=== PATIENT | female | born 1965 | race Caucasian/White ===

== ENCOUNTER 2018-03-13 23:13 | Emergency (ER) | payer BC, SELFPAY ==
[2018-03-13 23:38] VITALS: BP 179/105; PULSE 76; RESP 20; TEMP 36.6; O2SAT 99; BMI 31.0
--- NOTE | 2018-03-13 23:42 | DI.RAD.S_ITS ---
PROCEDURE: XR FINGER LT MIN 2V INDICATIONS: pain and posiible deformity TECHNIQUE: AP hand, 2 views of the left finger(s) acquired. COMPARISON: None. FINDINGS: Bones: No fractures or dislocations. No suspicious bony lesions. Soft tissues: Soft tissue swelling involving the proximal ring finger at the level of the proximal phalanx.. IMPRESSION: No fracture. Ring finger proximal soft tissue swelling Dictated by: Trace Quarles M.D. on 03/14/2018 at 7:29 Approved by: Trace Quarles M.D. on 03/14/2018 at 7:31
--- NOTE | 2018-03-14 04:52 | ED_ITS ---
HPI - Extremity Injury (Upper) General Chief Complaint: Extremity Injury, Upper Stated Complaint: THINKS SHE BROKE LEFT RING FINGER Time Seen by Provider: 03/14/18 00:00 Source: patient Mode of arrival: ambulatory Limitations: no limitations History of Present Illness HPI narrative: Patient complains of left ring finger pain after an injury just prior to arrival. Her was walking a large dog whom became a bit rambunctious, he pulled back forcefully on the leash and his hand and struck her in her left hand. Since then she has had pain in her left finger at the metacarpophalangeal joint. She denies any obvious deformity nor numbness, tingling or weakness. She denies any history of injury to this finger and is otherwise well and free of complaint MD complaint: injury to: left and finger Onset (ago): hour(s) Other Extremity Injury: Left: fingers Other injuries: none Handedness: right Place: outdoors Severity: mild Relieving factors: rest Exacerbating factors: movement of extremity Context: direct blow Associated symptoms: denies other symptoms Related Data Previous Rx's Medication Instructions Recorded docusate sodium [Colace] 100 mg PO BID #14 cap 01/20/17 oxycodone 5 mg PO Q3HP PRN #40 tab 01/20/17 Allergies Allergy/AdvReac Type Severity Reaction Status Date / Time egg [EGG] Allergy Unknown Unverified 12/04/17 12:27 Review of Systems Review of Systems All systems reviewed & are unremarkable except as noted in HPI and below Eyes Denies change in vision, Denies eye discharge, Denies irritation and Denies loss of vision Cardiovascular Denies chest pain, Denies irregular heart rhythm, Denies lightheadedness, Denies palpitations and Denies orthopnea Gastrointestinal Gastrointestinal: Denies abdominal pain, Denies change in bowel habits, Denies diarrhea, Denies nausea and Denies vomiting Musculoskeletal Reports joint swelling and Reports limited range of motion Integumentary/Breasts Denies pruritus, Denies erythema, Denies rash and Denies wounds Neurologic Denies loss of vision Endocrine Denies palpitations [facility] Social History Smoking Status: Never smoker Exam Initial Vital Signs Initial Vital Signs: Vital Signs Temperature 98 F 03/13/18 23:38 Pulse Rate 76 03/13/18 23:38 Respiratory Rate 20 03/13/18 23:38 Blood Pressure 179/105 H 03/13/18 23:38 Pulse Oximetry 99 03/13/18 23:38 Const General: cooperative and well developed Nutritional Appearance: well nourished Orientation: alert, awake, oriented x3 and not confused Resp Effort & Inspection: normal respiratory effort, able to speak in complete sentences, no respiratory distress and no use of accessory muscles Auscultation: clear to auscultation bilaterally, no rales, no rhonchi and no wheezes Cardio Rate: regular rate Rhythm: regular rhythm Heart Sounds: no click, no gallops, no murmurs and no rubs Pulses: normal peripheral pulses GI Inspection: non-distended Palpation: soft, no hepatosplenomegaly, No guarding, No pulsatile mass and No tender Auscultation: normal bowel sounds Neuro General: alert, oriented x3, gait normal and no focal motor deficits Speech: speech normal Motor: muscle tone normal throughout Sensory Exam: no sensory deficits noted Extrem Left upper extremity: hand Details: normal ROM of fingers and swelling; no abrasions and no lacerations Procedures Orthopedic Splinting/Casting Injury #1: Upper Extremity Injury Location: finger Upper Extremity Immobilizer: aluminum form splint Course Orders Ordered: ED Orders 03/13/18 23:42 XR finger LT min 2V Stat Vital Signs - 8 hr 03/13/18 23:38 Temperature 98 F Pulse Rate 76 Respiratory Rate 20 Blood Pressure 179/105 H Pulse Oximetry 99 Discharge Plan Departure Patient Disposition: Home, Self-Care Clinical Impression: Finger sprain Discharge Date/Time: 03/14/18 01:51 Interventions: ED Discharge Assessment Last Done: 03/14/18 01:50 Instructions: DI for Finger Sprain Activity Restrictions/Additional Instructions: *You have been diagnosed with [ left ring finger sprain ] *What to do: *Take medications as directed such as pwld-krb-tenoryi Tylenol and Motrin *Follow up with your primary care provider in 2-3 days, call for an appointment. Let them know you were seen in the Emergency Department and that we ask that you be seen in follow up *Return to ER if you should have any new, worsening or concerning symptoms , such as [increasing pain, swelling, numbness or weakness of her finger ] Prescriptions: No Action oxycodone 5 MG tablet 5 mg PO Q3HP PRNQty: 40 RF: 0 docusate sodium [Colace] 100 MG capsule 100 mg PO BID Qty: 14 RF: 1
== END 2018-03-14 01:51 | disposition home or self-care (01) ==
PROVIDERS: Emergency Provider Emergency Medicine
DX: S63.615A Unspecified sprain of left ring finger, initial encounter (principal); W23.0XXA Caught, crushed, jammed, or pinched between moving objects, initial encounter
CPT/HCPCS: 29130; 73140; 99282; 99283

== ENCOUNTER 2018-04-15 23:56 | Emergency (ER) | payer BC, SELFPAY ==
[2018-04-16 00:07] VITALS: BP 158/99; PULSE 86; RESP 20; TEMP 37; O2SAT 99
[2018-04-16 00:14] VITALS: PULSE 86; RESP 20; TEMP 37; O2SAT 99
[2018-04-16] MEDS: predniSONE 20 MG TABLET 60 MG PO (02:11)
[2018-04-16 02:44] VITALS: BP 155/90; PULSE 86; RESP 20; TEMP 36.9; O2SAT 99
--- NOTE | 2018-04-17 04:09 | ED_ITS ---
HPI - URI/Sore Throat General Chief Complaint: Upper Respiratory Symptoms Stated Complaint: facial swelling, congestion headache Time Seen by Provider: 04/15/18 23:59 Source: patient Mode of arrival: ambulatory Limitations: no limitations History of Present Illness HPI Narrative: Patient presents to the emergency department today with a chief complaint of nasal congestion and sinus fullness with some mild headache over the course of the day which she attributes to all the smoke in the atmosphere. She presents to the emergency department because she had perceived swelling on her bilateral cheeks but denies any tongue lip or throat swelling. She has no trouble with swallowing or difficulty breathing. She denies any exposure to known allergens. She denies any rash or urticaria MD Complaint: rhinorrhea, nasal congestion and sinus pain Onset (ago): hour(s) Duration: constant Severity: mild Relieving factors: nothing Exacerbating factors: nothing Description of mucous: clear Able to tolerate fluids by mouth: Yes Associated symptoms: denies other symptoms Treatments prior to arrival: cold medicine Related Data Previous Rx's Medication Instructions Recorded docusate sodium [Colace] 100 mg PO BID #14 cap 01/20/17 oxycodone 5 mg PO Q3HP PRN #40 tab 01/20/17 prednisone 20 mg PO BID 4 Days #8 tab 04/16/18 Allergies Allergy/AdvReac Type Severity Reaction Status Date / Time egg [EGG] Allergy Unknown Unverified 12/04/17 12:27 Review of Systems Review of Systems All systems reviewed & are unremarkable except as noted in HPI and below Constitutional Denies chills, Denies fever(s), Denies lethargy and Denies weakness Eyes Denies change in vision, Denies eye discharge, Denies irritation and Denies loss of vision ENT Ears, Nose, Mouth, and Throat: Denies change in voice, Reports nasal congestion , Denies neck pain and Denies sore throat Cardiovascular Denies chest pain, Denies irregular heart rhythm, Denies lightheadedness, Denies palpitations, Denies dyspnea, Denies dyspnea on exertion and Denies orthopnea Respiratory Denies cough, Denies dyspnea, Denies dyspnea on exertion and Denies wheezing Gastrointestinal Gastrointestinal: Denies abdominal pain, Denies change in bowel habits, Denies diarrhea, Denies nausea and Denies vomiting Genitourinary Denies hematuria, Denies flank pain, Denies urinary incontinence and Denies urinary urgency Musculoskeletal Denies neck pain Integumentary/Breasts Denies pruritus, Denies erythema, Denies rash and Denies wounds Neurologic Denies confusion, Denies loss of vision and Denies weakness Psychiatric Denies anxiety, Denies confusion, Denies depression, Denies homicidal ideation and Denies suicidal ideation Endocrine Denies palpitations Hematologic/Lymphatic Denies easy bruising Allergic/Immunologic Denies wheezing PFSH Social History Smoking Status: Never smoker Exam Narrative Exam Narrative: GEN: AOx3 and in mild distress FACE: No swelling noted, no erythema, warmth or induration. She does have some tenderness over all sinuses EYES: Pupils are equal, round, and reactive to light and accommodation. Extraoccular muscles are intact bilaterally. There is no subconjunctival hemorrhage or exudate. CHEST: Lungs are clear to auscultation bilaterally and free of wheezes, rales, or rhonchi. Heart rate is regular rhythm, there are no murmurs, clicks, rubs, or gallops. There is no chest wall tenderness. ABD: Abdomen is soft and nontender. There is no guarding or rebound. Bowel sounds are normal in all 4 quadrants. There is no mass or organomegaly. EXT: Full painless ROM of all extremities with no loss of sensation or strength. SKIN: Warm, pink, and dry. No erythema or rash Initial Vital Signs Initial Vital Signs: Vital Signs Temperature 98.6 F 04/16/18 00:07 Pulse Rate 86 04/16/18 00:07 Respiratory Rate 20 04/16/18 00:07 Blood Pressure 158/99 H 04/16/18 00:07 Pulse Oximetry 99 04/16/18 00:07 Course Orders Ordered: Discontinued Medications Prednisone (Deltasone) 60 mg PO NOW ONE Stop: 04/16/18 01:31 Last Admin: 04/16/18 02:11 Dose: 60 mg Discharge Plan Departure Patient Disposition: Home Clinical Impression: Allergic rhinitis Discharge Date/Time: 04/16/18 02:46 Interventions: ED Discharge Assessment Last Done: 04/16/18 02:44 Instructions: Allergic Rhinitis Activity Restrictions/Additional Instructions: *You have been diagnosed with [ allergic rhinitis due to environmental smoke] *What to do: *Take medications as directed: Continue taking suem-yko-cjjowll Beverly D (or similar) *Follow up with your primary care provider in 2-3 days, call for an appointment. Let them know you were seen in the Emergency Department and that we ask that you be seen in follow up *Return to ER if you should have any new, worsening or concerning symptoms Prescriptions: New prednisone 20 mg tablet 20 mg PO BID 4 Days Qty: 8 RF: 0 No Action oxycodone 5 MG tablet 5 mg PO Q3HP PRNQty: 40 RF: 0 docusate sodium [Colace] 100 MG capsule 100 mg PO BID Qty: 14 RF: 1
== END 2018-04-16 02:46 | disposition home or self-care (01) ==
PROVIDERS: Emergency Provider Emergency Medicine
DX: J30.9 Allergic rhinitis, unspecified (principal)
CPT/HCPCS: 99282; 99283

== ENCOUNTER 2022-12-07 19:50 | Emergency (ER) | payer OTHER, SELFPAY ==
[2022-12-07] VITALS (8 sets, daily range): BP systolic 133–154; BP diastolic 69–85; PULSE 75–92; RESP 13–20; TEMP 36.3; O2SAT 96–98; BMI 28.3
[2022-12-07] MEDS: SODIUM CHLORIDE 0.9% 1,000 ML 1000 ML IV (20:21)
[2022-12-07 20:32] LABS: Alanine Aminotransferase 31 IU/L (<35); Albumin 4.4 g/dL (3.5-5.0); Albumin Globulin Ratio 1.3 (1.0-2.8); Alkaline Phosphatase 77 U/L (38-126); Aspartate Aminotransferase 29 IU/L (14-36); Bilirubin Total 0.4 mg/dL (0.2-1.3); Blood Urea Nitrogen 15 mg/dL (7-17); Calcium 9.4 mg/dL (8.4-10.2); Carbon Dioxide 23 mmol/L (22-32); Chloride 104 mmol/L (98-107); Estimated Glomerular Filt Rate > 60 mL/min (>60); Globulin 3.4 g/dL (1.7-4.1); Glucose 112 mg/dL (70-100); HEMOLYSIS < 15 (0-50); Lipase 340 U/L (23-300); Potassium 3.9 mmol/L (3.4-5.1); Sodium 137 mmol/L (137-145); Total Protein 7.8 g/dL (6.3-8.2)
[2022-12-07 20:43] LABS: Add Manual Diff / Slide Review NO; Basophils Absolute Auto 100 /uL (0-100); Basophils Percent Auto 0.4 % (0-2); Eosinophils Absolute Auto 600 /uL (0-450); Eosinophils Percent Auto 3.9 % (2-4); Hemoglobin 13.3 g/dL (12.0-16.0); Lymphocytes Absolute Auto 2700 /uL (1100-4500); Lymphocytes Percent Auto 18.3 % (25-40); Mean Corpuscular HGB Conc 34.2 % (30-36); Mean Corpuscular Hemoglobin 28.5 PG (26-34); Mean Corpuscular Volume 83.3 fL (80-100); Monocytes Absolute Auto 1000 /uL (0-900); Monocytes Percent Auto 7.1 % (3-14); Neutrophils Absolute Auto 10400 /uL (1500-7000); Neutrophils Percent Auto 70.3 % (50-75); Platelet Count 166 X10^3/uL (150-400); Red Blood Cell Count 4.69 X10^6/uL (4.0-5.2); Red Cell Distribution Width 12.4 % (11.6-14.8); White Blood Cell Count 14.8 X10^3/uL (4.5-11.0)
[2022-12-07 20:45] LABS: Ictotest Urine Negative (Negative)
[2022-12-07 20:46] LABS: Bacteria Urine Occasional (0-1); Culture Indicated Urine Specimen Cultured; RBC Urine None Seen (0-5/HPF); Squamous Epithelial Cell Urine 1-5 /HPF (0-5/HPF); WBC Urine 5-10/HPF (0-5/HPF)
--- NOTE | 2022-12-07 21:04 | PC.NURSE ---
Pt reports hx of Mitral valve prolapse and paroxysmal atrial tachycardia.
--- NOTE | 2022-12-07 21:53 | ED.ABDPAIN ---
HPI - Abdominal Pain General Chief Complaint: Abdominal Pain Stated Complaint: Woozy, Belly pain Time Seen by Provider: 12/07/22 20:06 Source: patient Mode of arrival: Ambulatory History of Present Illness HPI narrative: This is a 56-year-old female with history of mitral valve prolapse, proximal atrial tachycardia, prior cholecystectomy and left inguinal hernia repair. Patient patient has had right upper quadrant abdominal pain for months usually when she wakes up she usually has food in the morning and it feels better she thought this might just be secondary to her prior cholecystectomy. For the last week she is had bilateral upper abdominal bloating distention and discomfort, she states no flank or new back pain. She denies fevers or chills until today she was freezing cold. She is had diarrhea for about a week no black or bloody stools typically small amounts frequently throughout the day 2 or 3 maybe 4 times. Patient states typically she has formed stools. She did drink an entire bottle of Mag citrate and then a large glass of water all at once because they thought that might be helpful about 45 minutes after that she got very nauseated vomited x1 but became concerned because she threw up a salad she would had at 9:00 a.m. in the morning and this was at 7:30 a.m. this evening. Patient only had the 1 episode of vomiting. She denies dysuria, urgency or frequency. Patient states no prescription medications she has known mitral valve prolapse. She is had prior cholecystectomy and left hernia repair and inguinal. She has an allergy to raw egg so avoids flu shots. No tobacco, alcohol once every 6 months, no illicit. Dr. López is her PCP. She works as a school cook. Related Data Previous Rx's Medication Instructions Recorded docusate sodium 100 mg capsule 100 mg PO BID #14 caps 01/20/17 (Colace) oxycodone 5 mg tablet 5 mg PO Q3HP PRN #40 tabs 01/20/17 meloxicam 7.5 mg tablet 7.5 mg PO BID PRN pain #10 tabs 12/07/22 Allergies Allergy/AdvReac Type Severity Reaction Status Date / Time egg [EGG] Allergy Unknown Unverified 12/04/17 12:27 Review of Systems Review of Systems ROS Unobtainable: All systems reviewed & are unremarkable except as noted in HPI and below Patient History Social History Smoking Status: Never smoker Smoking Status: Never smoker Substance Use Type: does not use Exam Narrative Exam Narrative: GENERAL: Alert and oriented x three, female in mild distress. HEENT: Head normocephalic, atraumatic, EOMI, pupils reactive, face symmetric, moist mucous membranes NECK: Supple, full range of motion CARDIOVASCULAR: Regular rate and rhythm without murmurs, rubs or gallops. RESPIRATORY: Breath sounds equal bilaterally, no wheezes rales or rhonchi. ABDOMEN: Soft, generalized tenderness. Slightly distended. Normoactive bowel sounds all 4 quadrants. No guarding or rebound, rigidity, no mass : No CVA tenderness EXTREMITIES: Normal range of motion, no clubbing or edema. Neurovascularly intact NEUROLOGICAL: Cranial nerves II through XII grossly intact. Moving all extremities SKIN: Warm, dry, no petechiae, no rashes or lesions. Initial Vital Signs Initial Vital Signs: Vital Signs Temperature 97.4 F L 12/07/22 19:55 Pulse Rate 92 H 12/07/22 19:55 Respiratory Rate 20 12/07/22 19:55 Blood Pressure 133/85 12/07/22 19:55 Pulse Oximetry 98 12/07/22 19:55 Oxygen Delivery Method Room Air 12/07/22 19:55 Course Orders Ordered: ED Orders 12/07/22 22:04 CT abdomen pelvis w con Stat Discontinued Medications Sodium Chloride (Normal Saline 0.9%) 1,000 mls @ 1,000 mls/hr IV BOLUS ONE Stop: 12/07/22 21:10 Last Infusion: 12/07/22 21:24 Dose: 0 mls/hr Documented By: Admin: 12/07/22 20:21 Dose: 1,000 mls/hr Documented By: YESSENIA Ketorolac Tromethamine (Ketorolac 30 Mg/Ml Vial) 15 mg IV NOW ONE Stop: 12/07/22 22:05 Last Admin: 12/07/22 22:11 Dose: 15 mg Documented By: STEPHAN Ondansetron HCl (Ondansetron 4 Mg Odt) 4 mg PO NOW PRN PRN Reason: Nausea And Vomiting Ondansetron HCl (Ondansetron 4 Mg/2 Ml Inj) 4 mg IV NOW PRN PRN Reason: Nausea And Vomiting Ondansetron HCl (Ondansetron 4 Mg/2 Ml Inj) 4 mg IV NOW ONE Stop: 12/07/22 22:05 Last Admin: 12/07/22 22:11 Dose: 4 mg Documented By: JENNG Vital Signs Vital signs: Vital Signs - 8 hr 12/07/22 22:00 12/07/22 22:30 12/07/22 23:00 Pulse Rate 83 81 80 Respiratory Rate 14 13 Blood Pressure Pulse Oximetry 97 97 96 12/07/22 23:17 12/07/22 23:17 Pulse Rate 75 Respiratory Rate 15 Blood Pressure 150/69 H Pulse Oximetry 96 MDM - Abdominal Pain Lab Data 12/07/22 20:15 12/07/22 20:15 Labs: Lab Results 12/07/22 12/07/22 12/07/22 Range/Units 20:15 20:15 20:15 WBC 14.8 H (4.5-11.0) X10^3/uL RBC 4.69 (4.0-5.2) X10^6/uL Hgb 13.3 (12.0-16.0) g/dL Hct 39.0 (36-46) % MCV 83.3 (80-100) fL MCH 28.5 (26-34) PG MCHC 34.2 (30-36) % RDW 12.4 (11.6-14.8) % Plt Count 166 (150-400) X10^3/uL Neut % (Auto) 70.3 (50-75) % Lymph % (Auto) 18.3 L (25-40) % Haakon % (Auto) 7.1 (3-14) % Eos % (Auto) 3.9 (2-4) % Baso % (Auto) 0.4 (0-2) % Neut # (Auto) 72414 H (9922-7181) /uL Lymph # (Auto) 2700 (1543-3912) /uL Haakon # (Auto) 1000 H (0-900) /uL Eos # (Auto) 600 H (0-450) /uL Baso # (Auto) 100 (0-100) /uL Sodium 137 (137-145) mmol/L Potassium 3.9 (3.4-5.1) mmol/L Chloride 104 (98-107) mmol/L Carbon Dioxide 23 (22-32) mmol/L BUN 15 (7-17) mg/dL Creatinine 0.60 (0.52-1.04) mg/dL Estimated GFR > 60 (>60) mL/min BUN/Creatinine Ratio 25.0 H (6-22) Glucose 112 H (70-100) mg/dL Calcium 9.4 (8.4-10.2) mg/dL Total Bilirubin 0.4 (0.2-1.3) mg/dL AST 29 (14-36) IU/L ALT 31 (<35) IU/L Alkaline Phosphatase 77 (38-126) U/L Total Creatine Kinase 40 (30-135) U/L CK-MB (CK-2) TNP CK-MB (CK-2) Rel Index TNP Troponin I < 0.012 (0.01-0.034) ng/mL Total Protein 7.8 (6.3-8.2) g/dL Albumin 4.4 (3.5-5.0) g/dL Globulin 3.4 (1.7-4.1) g/dL Albumin/Globulin Ratio 1.3 (1.0-2.8) Lipase 340 H (23-300) U/L Ur Bilirubin Confirm (Negative) Urine RBC (0-5/HPF) Urine WBC (0-5/HPF) Ur Squamous Epith Cells (0-5/HPF) Urine Bacteria (None) Ur Culture Indicated? 12/07/22 12/07/22 Range/Units 20:22 20:22 WBC (4.5-11.0) X10^3/uL RBC (4.0-5.2) X10^6/uL Hgb (12.0-16.0) g/dL Hct (36-46) % MCV (80-100) fL MCH (26-34) PG MCHC (30-36) % RDW (11.6-14.8) % Plt Count (150-400) X10^3/uL Neut % (Auto) (50-75) % Lymph % (Auto) (25-40) % [place] % (Auto) (3-14) % Eos % (Auto) (2-4) % Baso % (Auto) (0-2) % Neut # (Auto) (8761-8362) /uL Lymph # (Auto) (8634-2148) /uL Haakon # (Auto) (0-900) /uL Eos # (Auto) (0-450) /uL Baso # (Auto) (0-100) /uL Sodium (137-145) mmol/L Potassium (3.4-5.1) mmol/L Chloride (98-107) mmol/L Carbon Dioxide (22-32) mmol/L BUN (7-17) mg/dL Creatinine (0.52-1.04) mg/dL Estimated GFR (>60) mL/min BUN/Creatinine Ratio (6-22) Glucose (70-100) mg/dL Calcium (8.4-10.2) mg/dL Total Bilirubin (0.2-1.3) mg/dL AST (14-36) IU/L ALT (<35) IU/L Alkaline Phosphatase (38-126) U/L Total Creatine Kinase (30-135) U/L CK-MB (CK-2) CK-MB (CK-2) Rel Index Troponin I (0.01-0.034) ng/mL Total Protein (6.3-8.2) g/dL Albumin (3.5-5.0) g/dL Globulin (1.7-4.1) g/dL Albumin/Globulin Ratio (1.0-2.8) Lipase (23-300) U/L Ur Bilirubin Confirm Negative (Negative) Urine RBC None seen (0-5/HPF) Urine WBC 5-10/hpf H (0-5/HPF) Ur Squamous Epith Cells 1-5 /hpf (0-5/HPF) Urine Bacteria Occasional (0-1) (None) Ur Culture Indicated? Specimen cultured Point of care testing: Urine Dip Bedside Urine Glucose Negative Bedside Urine Bilirubin + 1 Bedside Urine Ketone +/- 5 Urine Specific [place] 1.03 Bedside Urine Occult Blood + Bedside Urine Protein - Negative Bedside Urine Urobilinogen - Negative Bedside Urine Nitrite - Negative Bedside Urine Leukocytes + [address] scan - abdomen/pelvis: Radiologist's Impression: [address] [address] [address] Scan Report Signed Patient: Caryn Card MR#: [id number] : 1965 Acct:[id number] Age/Sex: 56 / F Date of Service: 12/07/22 Loc: ED Accession Number: [id number] ?? Procedure: CT abdomen pelvis w con Ordering Provider: Ashlie Lewis D.O. PROCEDURE:? CT ABDOMEN PELVIS W CON ? INDICATIONS:? RUQ pain months, Diarrhea 1 wk, vomiting today ? TECHNIQUE:? After the administration of IV contrast, axial sections were acquired from the lung bases to the pubic symphysis.? Coronal and sagittal reformats were performed.? For radiation dose reduction, the following was used:? automated exposure control, adjustment of mA and/or kV according to patient size. ? COMPARISON:? None. ? FINDINGS:? Image quality:? Excellent.? ? Lung bases:? Unremarkable.? ? Heart:? Trace pericardial fluid.? Pectus excavatum.? Probable small hiatal hernia. ? ? ABDOMEN: Liver:? Small hypodensity at the inferior right liver.? ? Gallbladder:? Absent.? ? Biliary ducts:? Unremarkable.? ? Pancreas:? No peripancreatic fluid collection.? No pancreatic ductal dilatation. Spleen:? No splenomegaly. Adrenal Glands:? Left adrenal nodule measuring 1.2 cm, (10/17).? ? Kidneys and Ureters:? No hydronephrosis.? Right cortical hypodensity which is too small to further characterize. ? Stomach and Bowel:? Stomach, small bowel loops, and colon are unremarkable.? Normal appendix. Peritoneum:? No abnormal intraperitoneal fluid.? No free air.? ? Ventral Wall: ? No hernia.? Abdominal Nodes:? No retroperitoneal or mesenteric adenopathy by size criteria.? Shotty lymph nodes in the right lower quadrant, (11/21).? A node with a short axis diameter measuring 0.9 cm, ().? Vessels:? Aorta and inferior vena cava are normal in size.? ? PELVIS: Pelvic Organs:? Retroverted uterus.? No free fluid.? Bladder:? No stone. Pelvic Nodes: No enlarged lymph nodes.? Miscellaneous: No inguinal hernias are seen. ? ? ? Bones:? No suspicious lesion. ? ? IMPRESSION:? 1. No bowel obstruction.? Normal appendix.? No free fluid. ? 2. Shotty lymph nodes in the right lower quadrant.? This could be seen in the setting of occult infectious/inflammatory etiology.? Please ensure up-to-date colonoscopy. ? 3. Probable small hiatal hernia. ? ? Dictated by: Harjinder Akers M.D. on 12/07/2022 at 22:43 ? ? Approved by: Harjinder Akers M.D. on 12/07/2022 at 22:50?? ECG Data Attestation: I personally reviewed and interpreted this ECG as follows: Prior ECG tracings: not available for review Interpretation: Sinus rhythm, rate of 70 6p are 130 QRS 88 QTC 425. Patient has T-wave and P waves are inverted in 3, not appreciated in 2 or AVF. Patient has T-wave inverted in V3 V4 but not in other leads. MDM Narrative Medical decision making narrative: This is a 56-year-old female who presents with chronic right upper quadrant abdominal pain that was worsened today and bilateral patient felt very bloated. She has had diarrhea for about a week. Small amounts. Some nausea but no persistent vomiting. She is afebrile, heart rate was 92 she is not hypotensive. Labs showed a white count of 14, leftward shift. CMP shows glucose of 112 normal renal function, electrolytes, LFTs, negative troponin with lipase of 340. This is slightly elevated but not 3 times normal should be typical for pancreatitis. Patient's urine shows possible infection she is not been having any urinary symptoms her pain is more in the upper abdomen bilaterally with no flank pain really reported. Patient's CT abdomen shows some shotty lymph nodes in the right lower quadrant but otherwise no acute changes. Discussed these with the patient. She is never had a colonoscopy so it is recommended that she have 1 to evaluate for occult infection or malignancy. She had improvement of pain with Toradol and Zofran and fluid here in the department. I will give a short course from meloxicam, simethicone she notes a lot of gas and we did discuss that the bottle of magnesium citrate that she drank before having quite a bit of diarrhea and her 1 episode of vomiting may have irritated her if she was not actually constipated. Patient and I discussed return precautions all questions answered she feels comfortable with this plan. Discharge Plan Departure Patient Disposition: Home Clinical Impression: Abdominal pain Instructions: DI for Abdominal Pain-Adult Activity Restrictions/Additional Instructions: Please follow up for recheck and colonoscopy. Referral is included for general surgery or Gastroenterology either of these specialties can perform colonoscopy. Please call to set one up. Your imaging does not show clear changes but there are some lymph nodes that look shotty or slightly inflamed, and this is why a colonoscopy is being recommended is to check the inside for any changes. You can try Gas-X or simethicone mgfw-wyq-vlajzjl if you are feeling very bloated or gassy. You can take Tylenol up to a 1000 mg every 6 hours, you can take meloxicam 1 tablet every 12 hours as needed for pain. Do not take NSAIDs such as ibuprofen or Aleve with the meloxicam. Prescription sent to [facility] in [place]. Please return for fevers rapidly worsening pain, persistent vomiting, black or bloody stools, lightheadedness passing out or other new or concerning changes. Prescriptions: New meloxicam 7.5 mg tablet 7.5 mg PO BID PRN (Reason: pain) Qty: 10 0RF No Action oxycodone 5 MG tablet 5 mg PO Q3HP PRNQty: 40 0RF docusate sodium [Colace] 100 MG capsule 100 mg PO BID Qty: 14 1RF Referrals: Connor López MD [Primary Care Provider] - Elva Connelly MD [Physician] - Severo Wise MD [Physician] - Stand Alone Forms: Patient Portal/API
--- NOTE | 2022-12-07 22:04 | DI.CT.S_ITS ---
PROCEDURE: CT ABDOMEN PELVIS W CON INDICATIONS: RUQ pain months, Diarrhea 1 wk, vomiting today TECHNIQUE: After the administration of IV contrast, axial sections were acquired from the lung bases to the pubic symphysis. Coronal and sagittal reformats were performed. For radiation dose reduction, the following was used: automated exposure control, adjustment of mA and/or kV according to patient size. COMPARISON: None. FINDINGS: Image quality: Excellent. Lung bases: Unremarkable. Heart: Trace pericardial fluid. Pectus excavatum. Probable small hiatal hernia. ABDOMEN: Liver: Small hypodensity at the inferior right liver. Gallbladder: Absent. Biliary ducts: Unremarkable. Pancreas: No peripancreatic fluid collection. No pancreatic ductal dilatation. Spleen: No splenomegaly. Adrenal Glands: Left adrenal nodule measuring 1.2 cm, (2/22). Kidneys and Ureters: No hydronephrosis. Right cortical hypodensity which is too small to further characterize. Stomach and Bowel: Stomach, small bowel loops, and colon are unremarkable. Normal appendix. Peritoneum: No abnormal intraperitoneal fluid. No free air. Ventral Wall: No hernia. Abdominal Nodes: No retroperitoneal or mesenteric adenopathy by size criteria. Shotty lymph nodes in the right lower quadrant, (3/29). A node with a short axis diameter measuring 0.9 cm, (2/55). Vessels: Aorta and inferior vena cava are normal in size. PELVIS: Pelvic Organs: Retroverted uterus. No free fluid. Bladder: No stone. Pelvic Nodes: No enlarged lymph nodes. Miscellaneous: No inguinal hernias are seen. Bones: No suspicious lesion. IMPRESSION: 1. No bowel obstruction. Normal appendix. No free fluid. 2. Shotty lymph nodes in the right lower quadrant. This could be seen in the setting of occult infectious/inflammatory etiology. Please ensure up-to-date colonoscopy. 3. Probable small hiatal hernia. Dictated by: Harjinder Akers M.D. on 12/07/2022 at 22:43 Approved by: Harjinder Aekrs M.D. on 12/07/2022 at 22:50
[2022-12-07] MEDS: KETOROLAC 30 MG/ML VIAL 15 MG IV (22:11)
[2022-12-07] MEDS: ONDANSETRON 4 MG/2 ML INJ IV (22:11)
[2022-12-07 22:33] LABS: Creatine Kinase 40 U/L (30-135)
[2022-12-07 22:46] LABS: Troponin I < 0.012 ng/mL (0.01-0.034)
== END 2022-12-07 23:50 | disposition home or self-care (01) ==
PROVIDERS: Emergency Provider Emergency Medicine; PCP Internal Medicine
DX: R10.11 Right upper quadrant pain (principal); R11.0 Nausea; R79.89 Other specified abnormal findings of blood chemistry
CPT/HCPCS: 36415; 74177; 80053; 81003; 81015; 82550; 83690; 84484; 85025; 87086; 93005; 93010; 96361; 96374; 96375; 99284; J1885; J2405; Q9967

== ENCOUNTER 2023-01-21 12:57 | Emergency (ER) | payer OTHER, SELFPAY ==
[2023-01-21 13:20] VITALS: BP 157/94; PULSE 91; RESP 16; TEMP 36.7; O2SAT 99; BMI 28.8
[2023-01-21 13:55] LABS: Strep Grp A by PCR Rapid Negative (Negative)
--- NOTE | 2023-01-21 15:30 | ED.URI ---
HPI - URI/Sore Throat General Chief Complaint: Upper Respiratory Symptoms Stated Complaint: T-7/congestrion/cough/ear/throat pain/goopy eyes Time Seen by Provider: 01/21/23 14:51 Source: patient Mode of arrival: Ambulatory History of Present Illness HPI Narrative: 57-year-old female presents to the ED with 1 week of upper respiratory symptoms including sore throat, nasal congestion, cough. Patient denies fever, chills, chest pain, shortness of breath, nausea, vomiting, abdominal pain, lightheadedness, dizziness, syncope. Related Data Previous Rx's Medication Instructions Recorded docusate sodium 100 mg capsule 100 mg PO BID #14 caps 01/20/17 (Colace) oxycodone 5 mg tablet 5 mg PO Q3HP PRN #40 tabs 01/20/17 meloxicam 7.5 mg tablet 7.5 mg PO BID PRN pain #10 tabs 12/07/22 benzonatate 200 mg capsule 200 mg PO TID PRN cough #30 caps 01/21/23 Allergies Allergy/AdvReac Type Severity Reaction Status Date / Time egg [EGG] Allergy Unknown Unverified 12/04/17 12:27 Review of Systems Review of Systems ROS Unobtainable: All systems reviewed & are unremarkable except as noted in HPI and below Constitutional Constitutional: Denies chills, Denies fatigue, Denies fever(s), Denies frequent falls, Denies lethargy and Denies weakness Eyes Eyes: Denies change in vision, Denies eye discharge, Denies irritation and Denies loss of vision ENT Ears, Nose, Mouth, and Throat: Denies change in voice, Denies dizziness, Reports nasal congestion, Denies neck pain, Reports sore throat and Denies throat swelling Cardiovascular Cardiovascular: Denies chest pain, Denies irregular heart rhythm, Denies lightheadedness, Denies palpitations, Denies dyspnea, Denies dyspnea on exertion and Denies orthopnea Respiratory Respiratory: Reports cough, Denies dyspnea, Denies dyspnea on exertion and Denies wheezing Gastrointestinal Gastrointestinal: Denies abdominal pain, Denies change in bowel habits, Denies diarrhea, Denies nausea and Denies vomiting Genitourinary Genitourinary: Denies hematuria, Denies flank pain, Denies urinary incontinence and Denies urinary urgency Musculoskeletal Musculoskeletal: Denies back pain, Denies muscle weakness, Denies neck pain, Denies numbness and Denies tingling Integumentary/Breasts Skin/Breast: Denies pruritus, Denies erythema, Denies rash and Denies wounds Neurologic Neurologic: Denies behavioral changes, Denies confusion, Denies dizziness, Denies frequent falls, Denies loss of vision, Denies numbness, Denies tingling and Denies weakness Psychiatric Psychiatric: Denies anxiety, Denies behavioral changes, Denies confusion, Denies depression, Denies homicidal ideation and Denies suicidal ideation Endocrine Endocrine: Denies fatigue, Denies flushing and Denies palpitations Hematologic/Lymphatic Hematologic/Lymphatic: Denies easy bruising Allergic/Immunologic Allergic/Immunologic: Denies urticaria, Denies throat swelling and Denies wheezing Patient History Social History Smoking Status: Never smoker Smoking Status: Never smoker Substance Use Type: does not use Exam Narrative Exam Narrative: Const General:?cooperative, healthy appearing and comfortable [facility] Head:?normal to inspection Ears:?hearing grossly normal bilaterally Nose:?external nose normal Face and sinus:?normal facial exam and sinuses nontender Mouth:?oral mucosae normal Throat:?posterior oropharynx normal Eyes General:?appearance normal, both eyes and all related structures Neck Neck:?normal visual inspection and no lymphadenopathy noted Resp Effort & Inspection:?normal respiratory effort Auscultation:?clear to auscultation bilaterally Cardio Rate:?regular rate Rhythm:?regular rhythm Neuro General:?patient alert, patient awake and patient oriented x3 Initial Vital Signs Initial Vital Signs: Vital Signs Temperature 98.1 F 01/21/23 13:20 Pulse Rate 91 H 01/21/23 13:20 Respiratory Rate 16 01/21/23 13:20 Blood Pressure 157/94 H 01/21/23 13:20 Pulse Oximetry 99 01/21/23 13:20 Oxygen Delivery Method Room Air 01/21/23 13:20 Course Orders Ordered: ED Orders 01/21/23 13:29 Strep Grp A by PCR Rapid Stat Throat Culture Stat Vital Signs Vital signs: Vital Signs - 8 hr 01/21/23 13:20 Temperature 98.1 F Pulse Rate 91 H Respiratory Rate 16 Blood Pressure 157/94 H Pulse Oximetry 99 Oxygen Delivery Method Room Air MDM - URI/Sore Throat Lab Data Labs: Lab Results 01/21/23 Range/Units 13:29 Group A Strep (PCR) Negative (Negative) MDM Narrative Medical decision making narrative: 57-year-old female presents to the ED with 1 week of upper respiratory symptoms including sore throat, nasal congestion, cough. Physical exam is reassuring. Patient's symptoms likely due to a viral URI. Will prescribe Tessalon Perles for cough. Supportive measures discussed with patient. ED return precautions discussed with patient. Patient verbalized understanding. Medical records reviewed: Yes Discharge Plan Departure Patient Disposition: Home Clinical Impression: Upper respiratory infection Instructions: DI for Viral Upper Respiratory Infection -- Adult Activity Restrictions/Additional Instructions: You were evaluated in the ED today for a sore throat and cough. Your strep test was negative, the sample will be cultured and we will call you if the culture is positive. Your symptoms are likely due to a viral upper respiratory infection. You may take Tessalon Perles for cough. You may take Tylenol, ibuprofen for aches and pains. Please follow-up with your PCP as soon as possible. Return to the ED if you have chest pain, shortness of breath. Prescriptions: New benzonatate 200 mg capsule 200 mg PO TID PRN (Reason: cough) Qty: 30 0RF No Action oxycodone 5 MG tablet 5 mg PO Q3HP PRNQty: 40 0RF docusate sodium [Colace] 100 MG capsule 100 mg PO BID Qty: 14 1RF meloxicam 7.5 mg tablet 7.5 mg PO BID PRN (Reason: pain) Qty: 10 0RF Referrals: Connor López MD [Primary Care Provider] - Stand Alone Forms: Patient Portal/API
--- NOTE | 2023-01-21 15:33 | PC.NURSE ---
assessment done by provider
== END 2023-01-21 16:11 | disposition home or self-care (01) ==
PROVIDERS: Emergency Provider Student in an Organized Health Care Education/Training Program; PCP Internal Medicine
DX: J06.9 Acute upper respiratory infection, unspecified (principal)
CPT/HCPCS: 87070; 87651; 99281; 99282